=== PATIENT | female | born 1970 | race Two or more races ===

== ENCOUNTER 2017-06-05 12:33 | Inpatient (IN) | payer BC ==
[~2017-06-05] VITALS: Ht 160 cm; Wt 77.6 kg
[2017-06-05] VITALS (9 sets, daily range): BP systolic 110–127; BP diastolic 55–76
[2017-06-05 13:23] LABS: BASO # 0.1 x10^3/uL (0.0-0.2); BASO % 1 % (0-3); EOS % 1 % (0-3); HEMATOCRIT 25.5 % (36.0-47.0); HEMOGLOBIN 7.5 g/dL (12.0-15.5); LYMPH # 2.1 x10^3/uL (1.0-4.8); LYMPH % 31 % (24-48); MEAN CORPUSCULAR HEMOGLOBIN 18 pg (25-35); MEAN CORPUSCULAR HGB CONC 29 g/dL (31-37); MEAN CORPUSCULAR VOLUME 63 fL (79-100); MONO % 8 % (0-9); NEUT % 58 % (31-73); PLATELET COUNT 332 x10^3/uL (140-400); RED BLOOD COUNT 4.07 x10^6/uL (3.50-5.40); RED CELL DISTRIBUTION WIDTH 19.6 % (11.5-14.5); WHITE BLOOD COUNT 6.6 x10^3/uL (4.0-11.0)
[2017-06-05 13:34] LABS: CREATININE 0.8 mg/dL (0.6-1.0); GFR 77.2; POTASSIUM 3.2 mmol/L (3.5-5.1)
[2017-06-05 13:40] LABS: ALBUMIN 3.8 g/dL (3.4-5.0); ALBUMIN/GLOBULIN RATIO 0.9 (1.0-1.7); PROTHROMBIN TIME PATIENT 12.9 SEC (11.7-14.0); TOTAL BILIRUBIN 0.3 mg/dL (0.2-1.0); TOTAL PROTEIN 7.9 g/dL (6.4-8.2)
--- NOTE | 2017-06-05 14:02 | PHYS DOC ---
Past Medical History Past Medical History: Hypotension Past Surgical History: , Other Additional Past Surgical Histo: THYROID DESTROYED W/CAPSULE Alcohol Use: Occasionally Drug Use: None Adult General Chief Complaint Chief Complaint: ABNORMAL LABS HPI HPI Patient is a 46 year old female who was sent from the clinic due to a low hemoglobin of 6.8. Patient has been feeling increasingly tired, experiencing headaches, occasional chest pain and shortness of breath feeling generalized weakness. Patient has a history of thyroidectomy in heavy menstrual periods. Patient denies any easy bruising, hematuria, rectal bleeding. Review of Systems Review of Systems Constitutional: Denies fever or chills [] HENT: Denies nasal congestion or sore throat [] Respiratory: Denies cough. Episodic shortness of breath Cardiovascular: Episodic chest discomfort GI: Denies abdominal pain, nausea, vomiting, bloody stools or diarrhea [] : Denies dysuria or hematuria . Heavy menstrual periods Musculoskeletal: Denies back pain or joint pain [] Integument: Denies rash or skin lesions [] Neurologic: Mild headache, no focal weaknesses Endocrine: Denies polyuria or polydipsia [] Allergies Allergies Allergies Coded Allergies Type Severity Reaction Last Updated Verified No Known Drug Allergies 06/05/17 No Physical Exam Physical Exam Constitutional: Well developed, well nourished, no acute distress, pale HENT: Normocephalic, atraumatic, Eyes: PERRLA, EOMI, conjunctiva pale, no discharge. [] Neck: Normal range of motion, no tenderness, supple, no stridor. [] Cardiovascular:Heart rate regular rhythm, no murmur, normal perfusion Lungs & Thorax: Bilateral breath sounds clear to auscultation, no tachypnea Abdomen: Bowel sounds normal, soft, no tenderness, no masses, no pulsatile masses. [] Skin: Warm, dry, no erythema, no rash. [] Back: No tenderness, no CVA tenderness. [] Extremities: No tenderness, no cyanosis, no clubbing, ROM intact, no edema. [] Neurologic: Alert and oriented X 3, normal motor function no focal deficits noted. [] Psychologic: Affect normal, judgement normal, mood normal. [] Current Patient Data Vital Signs Vital Signs Date Time Temp Pulse Resp B/P (MAP) Pulse Ox O2 Delivery O2 Flow Rate FiO2 06/05/17 12:54 97.8 82 18 168/77 (107) 100 Room Air 97.8 Lab Values Laboratory Tests Test 06/05/17 13:15 White Blood Count 6.6 x10^3/uL (4.0-11.0) Red Blood Count 4.07 x10^6/uL (3.50-5.40) Hemoglobin 7.5 g/dL (12.0-15.5) L Hematocrit 25.5 % (36.0-47.0) L Mean Corpuscular Volume 63 fL (79-100) L Mean Corpuscular Hemoglobin 18 pg (25-35) L Mean Corpuscular Hemoglobin Concent 29 g/dL (31-37) L Red Cell Distribution Width 19.6 % (11.5-14.5) H Platelet Count 332 x10^3/uL (140-400) Neutrophils (%) (Auto) 58 % (31-73) Lymphocytes (%) (Auto) 31 % (24-48) Monocytes (%) (Auto) 8 % (0-9) Eosinophils (%) (Auto) 1 % (0-3) Basophils (%) (Auto) 1 % (0-3) Neutrophils # (Auto) 3.8 x10^3uL (1.8-7.7) Lymphocytes # (Auto) 2.1 x10^3/uL (1.0-4.8) Monocytes # (Auto) 0.5 x10^3/uL (0.0-1.1) Eosinophils # (Auto) 0.1 x10^3/uL (0.0-0.7) Basophils # (Auto) 0.1 x10^3/uL (0.0-0.2) Platelet Estimate Adequate (ADEQUATE) Hypochromasia Marked Poikilocytosis Slight Anisocytosis Slight Microcytosis Marked Ovalocytes Few Prothrombin Time 12.9 SEC (11.7-14.0) Prothrombin Time INR 1.0 (0.8-1.1) Sodium Level 141 mmol/L (136-145) Potassium Level 3.2 mmol/L (3.5-5.1) L Chloride Level 104 mmol/L (98-107) Carbon Dioxide Level 28 mmol/L (21-32) Anion Gap 9 (6-14) Blood Urea Nitrogen 13 mg/dL (7-20) Creatinine 0.8 mg/dL (0.6-1.0) Estimated GFR (Cockcroft-Gault) 77.2 BUN/Creatinine Ratio 16 (6-20) Glucose Level 85 mg/dL (70-99) Calcium Level 9.0 mg/dL (8.5-10.1) Iron Level 53 ug/dL (50-170) Total Iron Binding Capacity 476 ug/dL (250-450) H Iron Saturation 11 % (15-34) L Total Bilirubin 0.3 mg/dL (0.2-1.0) Aspartate Amino Transferase (AST) 21 U/L (15-37) Alanine Aminotransferase (ALT) 22 U/L (14-59) Alkaline Phosphatase 96 U/L (46-116) Total Protein 7.9 g/dL (6.4-8.2) Albumin 3.8 g/dL (3.4-5.0) Albumin/Globulin Ratio 0.9 (1.0-1.7) L Laboratory Tests 06/05/17 13:15 Laboratory Tests 06/05/17 13:15 EKG EKG 79, SR, no stemi, EP interpretation at 1311[] Radiology/Procedures Radiology/Procedures [] Course & Med Decision Making Course & Med Decision Making Pertinent Labs and Imaging studies reviewed. (See chart for details) [] Dragon Disclaimer Dragon Disclaimer This electronic medical record was generated, in whole or in part, using a voice recognition dictation system. Departure Departure Disposition: 09 ADMITTED INPATIENT Admitting Physician: Payal Soria Referrals: LAMONT AGUILAR (PCP) Anand ESTRADA MD Jun 05, 2017 14:02
[2017-06-05] MEDS ORDERED: IV NORMAL SALINE 500ML BAG 500 ML IV SCH (14:30)
[2017-06-05 14:54] LABS: ANISOCYTOSIS SLIGHT; HYPOCHROMIA MARKED; MICROCYTOSIS MARKED; PLT ESTIMATE ADEQUATE (ADEQUATE); POIKILOCYTOSIS SLIGHT
[2017-06-05 14:55] LABS: OVALOCYTES FEW
[2017-06-05] MEDS ORDERED: ONDANSETRON PF 4 MG/2 ML VIAL. IV PRN (15:00)
[2017-06-05] MEDS ORDERED: BUTALB/APAP/CAFEIN 50/325/40MG TABLET. PO PRN (15:45)
[2017-06-05] MEDS ORDERED: traMADol 50 MG TABLET PO PRN (15:45)
[2017-06-05 15:52] LABS: % SAT IRON 11 % (15-34); IRON,SERUM 53 ug/dL (50-170)
[2017-06-05] MEDS ORDERED: MAGNESIUM SULFATE 2GM 50 ML IV ONE (16:00)
[2017-06-05] MEDS ORDERED: POTASSIUM CHLORIDE 20 MEQ TABLET.ER. PO ONE (16:00)
--- NOTE | 2017-06-05 16:21 | PDOC1 ---
History and Physical Date of Admission Date of Admission DATE: 06/05/17 TIME: 16:14 Identification/Chief Complaint Chief Complaint chest pain, dyspnea on exertion Problems: Source Source: Chart review, Patient History of Present Illness History of Present Illness Ms. Min, is a 46 year old female who was sent from the clinic due to a low hemoglobin of 6.8. She has been feeling increasingly tired, experiencing headaches, occasional chest pain and shortness of breath feeling generalized weakness. 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 is s/p tubal ligation, not interested in having other children no other bleeding, no heavy bleeding with child Past Medical History Cardiovascular: No pertinent hx Pulmonary: No pertinent hx GI: No pertinent hx Musculoskeletal: low back pain Rheumatologic: No pertinent hx ENT: No pertinent hx Renal/: No pertinent hx Endocrine: Hypothyroidism Past Surgical History Past Surgical History: Tubal Ligation, Other (radioablation thyroid) Social History Smoke: No ALCOHOL: social Drugs: None Current Medications Current Medications Current Medications Sodium Chloride 500 ml @ 500 mls/hr Q1H IV Last administered on 06/05/17t 14: 49; Start 06/05/17 at 14:30; Stop 06/05/17 at 15:29; Status DC Ondansetron HCl (Zofran) 4 mg PRN Q8HRS PRN IV NAUSEA/VOMITING; Start 06/05/17 at 15:00; Stop 06/06/17 at 14:59 Potassium Chloride (Klor-Con) 20 meq DAILYWBKFT PO ; Start 06/06/17 at 08:00 Potassium Chloride (Klor-Con) 40 meq 1X ONCE PO ; Start 06/05/17 at 16:00; Stop 06/05/17 at 16:01; Status DC Magnesium Sulfate/ Dextrose 50 ml @ 25 mls/hr 1X ONCE IV ; Start 06/05/17 at 16 :00; Stop 06/05/17 at 17:59 Acetaminophen/ Butalbital/ Caffeine (Fioricet) 1 tab PRN Q6HRS PRN PO MIGRAINE HEADACHE; Start 06/05/17 at 15:45 Tramadol HCl (Ultram) 50 mg PRN Q6HRS PRN PO PAIN; Start 06/05/17 at 15:45 Allergies Allergies: Coded Allergies: No Known Drug Allergies (Unverified , 06/05/17) ROS General: No: Chills, Night Sweats, Fatigue, Malaise, Appetite, Other PSYCHOLOGICAL ROS: No: Anxiety, Behavioral Disorder, Concentration difficultie , Decreased libido, Depression, Disorientation, Hallucinations, Hostility, Irritablity, Memory difficulties, Mood Swings, Obsessive thoughts, Physical abuse, Sexual abuse, Sleep disturbances, Suicidal ideation, Other Eyes: No Blurry vision, No Decreased vision, No Double vision, No Dry eyes, No Excessive tearing, No Eye Pain, No Itchy Eyes, No Loss of vision, No Photophobia , No Scotomata, No Uses contacts, No Uses glasses, No Other HEENT: No: Heacaches, Visual Changes, Hearing change, Nasal congestion, Nasal discharge, Oral lesions, Sinus pain, Sore Throat, Epistaxis, Sneezing, Snoring, Tinnitus, Vertigo, Vocal changes, Other Respiratory: No: Cough, Hemoptysis, Orthopnea, Pleuritic Pain, Shortness of breath, SOB with excertion, Sputum Changes, Stridor, Tachypnea, Wheezing, Other Cardiovascular: yes Chest Pain, yes Edema, No Palpitations, No Orthopnea, No Paroxysmal Noc. Dyspnea, No Lt Headedness, No Other Gastrointestinal: No Nausea, No Vomiting, No Abdominal Pain, No Diarrhea, No Constipation, No Melena, No Hematochezia, No Other Genitourinary: No Dysuria, No Frequency, No Incontinence, No Hematuria, No Retention, No Discharge, No Urgency, No Pain, No Flank Pain, No Other, No , No , No , No , No , No , No Musculoskeletal: No Gait Disturbance, No Joint Pain, No Joint Stiffness, No Joint Swelling, No Muscle Pain, No Muscular Weakness, No Pain In:, No Swelling In:, No Other Neurological: No Behavorial Changes, No Bowel/Bladder ControlChng, No Confusion , No Dizziness, No Gait Disturbance, No Headaches, No Impaired Coord/balance, No Memory Loss, No Numbness/Tingling, No Seizures, No Speech Problems, No Tremors, No Visual Changes, No Weakness, No Other Skin: No Dry Skin, No Eczema, No Hair Changes, No Lumps, No Mole Changes, No Mottling, No Nail Changes, No Pruritus, No Rash, No Skin Lesion Changes, No Other, No Acne Physical Exam General: Alert, Oriented X3, Cooperative, No acute distress HEENT: EOMI, Mucous membr. moist/pink Lungs: Normal air movement Heart: S1S2, no gallops, no murmurs Abdomen: Normal bowel sounds, Soft Rectal Exam: not examined Extremities: No clubbing, No edema, Normal pulses Skin: No breakdown, No significant lesion Neuro: Normal speech, Normal tone, Sensation intact, Cranial nerves 3-12 NL Psych/Mental Status: Mood NL Vitals Vitals Vital Signs Date Time Temp Pulse Resp B/P (MAP) Pulse Ox O2 Delivery O2 Flow Rate FiO2 06/05/17 14:50 68 19 116/58 (77) 100 Room Air 06/05/17 12:54 97.8 97.8 Labs Labs Laboratory Tests Test 06/05/17 13:15 White Blood Count 6.6 x10^3/uL (4.0-11.0) Red Blood Count 4.07 x10^6/uL (3.50-5.40) Hemoglobin 7.5 g/dL (12.0-15.5) Hematocrit 25.5 % (36.0-47.0) Mean Corpuscular Volume 63 fL (79-100) Mean Corpuscular Hemoglobin 18 pg (25-35) Mean Corpuscular Hemoglobin Concent 29 g/dL (31-37) Red Cell Distribution Width 19.6 % (11.5-14.5) Platelet Count 332 x10^3/uL (140-400) Neutrophils (%) (Auto) 58 % (31-73) Lymphocytes (%) (Auto) 31 % (24-48) Monocytes (%) (Auto) 8 % (0-9) Eosinophils (%) (Auto) 1 % (0-3) Basophils (%) (Auto) 1 % (0-3) Neutrophils # (Auto) 3.8 x10^3uL (1.8-7.7) Lymphocytes # (Auto) 2.1 x10^3/uL (1.0-4.8) Monocytes # (Auto) 0.5 x10^3/uL (0.0-1.1) Eosinophils # (Auto) 0.1 x10^3/uL (0.0-0.7) Basophils # (Auto) 0.1 x10^3/uL (0.0-0.2) Platelet Estimate Adequate (ADEQUATE) Hypochromasia Marked Poikilocytosis Slight Anisocytosis Slight Microcytosis Marked Ovalocytes Few Prothrombin Time 12.9 SEC (11.7-14.0) Prothromb Time International Ratio 1.0 (0.8-1.1) Sodium Level 141 mmol/L (136-145) Potassium Level 3.2 mmol/L (3.5-5.1) Chloride Level 104 mmol/L (98-107) Carbon Dioxide Level 28 mmol/L (21-32) Anion Gap 9 (6-14) Blood Urea Nitrogen 13 mg/dL (7-20) Creatinine 0.8 mg/dL (0.6-1.0) Estimated GFR (Cockcroft-Gault) 77.2 BUN/Creatinine Ratio 16 (6-20) Glucose Level 85 mg/dL (70-99) Calcium Level 9.0 mg/dL (8.5-10.1) Iron Level 53 ug/dL (50-170) Total Iron Binding Capacity 476 ug/dL (250-450) Iron Saturation 11 % (15-34) Total Bilirubin 0.3 mg/dL (0.2-1.0) Aspartate Amino Transf (AST/SGOT) 21 U/L (15-37) Alanine Aminotransferase (ALT/SGPT) 22 U/L (14-59) Alkaline Phosphatase 96 U/L (46-116) Total Protein 7.9 g/dL (6.4-8.2) Albumin 3.8 g/dL (3.4-5.0) Albumin/Globulin Ratio 0.9 (1.0-1.7) Laboratory Tests Test 06/05/17 13:15 White Blood Count 6.6 x10^3/uL (4.0-11.0) Red Blood Count 4.07 x10^6/uL (3.50-5.40) Hemoglobin 7.5 g/dL (12.0-15.5) Hematocrit 25.5 % (36.0-47.0) Mean Corpuscular Volume 63 fL (79-100) Mean Corpuscular Hemoglobin 18 pg (25-35) Mean Corpuscular Hemoglobin Concent 29 g/dL (31-37) Red Cell Distribution Width 19.6 % (11.5-14.5) Platelet Count 332 x10^3/uL (140-400) Neutrophils (%) (Auto) 58 % (31-73) Lymphocytes (%) (Auto) 31 % (24-48) Monocytes (%) (Auto) 8 % (0-9) Eosinophils (%) (Auto) 1 % (0-3) Basophils (%) (Auto) 1 % (0-3) Neutrophils # (Auto) 3.8 x10^3uL (1.8-7.7) Lymphocytes # (Auto) 2.1 x10^3/uL (1.0-4.8) Monocytes # (Auto) 0.5 x10^3/uL (0.0-1.1) Eosinophils # (Auto) 0.1 x10^3/uL (0.0-0.7) Basophils # (Auto) 0.1 x10^3/uL (0.0-0.2) Platelet Estimate Adequate (ADEQUATE) Hypochromasia Marked Poikilocytosis Slight Anisocytosis Slight Microcytosis Marked Ovalocytes Few Prothrombin Time 12.9 SEC (11.7-14.0) Prothromb Time International Ratio 1.0 (0.8-1.1) Sodium Level 141 mmol/L (136-145) Potassium Level 3.2 mmol/L (3.5-5.1) Chloride Level 104 mmol/L (98-107) Carbon Dioxide Level 28 mmol/L (21-32) Anion Gap 9 (6-14) Blood Urea Nitrogen 13 mg/dL (7-20) Creatinine 0.8 mg/dL (0.6-1.0) Estimated GFR (Cockcroft-Gault) 77.2 BUN/Creatinine Ratio 16 (6-20) Glucose Level 85 mg/dL (70-99) Calcium Level 9.0 mg/dL (8.5-10.1) Iron Level 53 ug/dL (50-170) Total Iron Binding Capacity 476 ug/dL (250-450) Iron Saturation 11 % (15-34) Total Bilirubin 0.3 mg/dL (0.2-1.0) Aspartate Amino Transf (AST/SGOT) 21 U/L (15-37) Alanine Aminotransferase (ALT/SGPT) 22 U/L (14-59) Alkaline Phosphatase 96 U/L (46-116) Total Protein 7.9 g/dL (6.4-8.2) Albumin 3.8 g/dL (3.4-5.0) Albumin/Globulin Ratio 0.9 (1.0-1.7) VTE Prophylaxis Ordered VTE Prophylaxis Devices: Yes VTE Pharmacological Prophylaxi: Contraindicated Assessment/Plan Assessment/Plan anemia symptomatic anemia, chest pain and exertional dyspnea, transfuse 1 u consult CV for symptoms with Hgb at 7 consult Sales Floor Team Member for menorrhagia, heavy menses. check iron levels hypothyroid, level checked at PCP office today WENDY PEREZ MD Jun 05, 2017 16:21
--- NOTE | 2017-06-05 16:39 | PDOC2 ---
RODRÍGUEZ CERON CHARGE AIDE 06/05/17 1639: CARDIAC CONSULT DATE OF CONSULT Date of Consult DATE: 06/05/17 TIME: 16:34 REASON FOR CONSULT Reason for Consult: angina REFERRING PHYSICIAN Referring Physician: Yang SOURCE Source: Chart review, Patient HISTORY OF PRESENT ILLNESS HISTORY OF PRESENT ILLNESS This is a 46 yo female admitted for intermittent PAULINO and midchest pain. Reports intermittent use of ibuprofen but no obvious sign of bleeding and has been taking iron supplements. Reports that her midchest pain is intermittent and sharp and mainly when she takes a deep breath. No complains of wheezing, palpitations, frequent dizziness. No prior cad,vte, long distance travels, falls or any recent injury. presently she is asymptomatic and has been noted with anemia now receiving blood transfusion. PAST MEDICAL HISTORY Cardiovascular: Hyperlipidemia Pulmonary: No pertinent hx CENTRAL NERVOUS SYSTEM: Other GI: No pertinent hx Heme/Onc: Anemia NOS Hepatobiliary: No pertinent hx Psych: No pertinent hx Musculoskeletal: Other Rheumatologic: No pertinent hx Infectious disease: No pertinent hx ENT: No pertinent hx Renal/: No pertinent hx Endocrine: Diabetes, Hypothyroidism Dermatology: No pertinent hx PAST SURGICAL HISTORY Past Surgical History: , Tubal Ligation, Other (thyroid ablation) FAMILY HISTORY Family History: Coronary Artery Disease SOCIAL HISTORY Smoke: No ALCOHOL: none Drugs: None Lives: with Family CURRENT MEDICATIONS CURRENT MEDICATIONS Current Medications Medications (Trade) Dose Ordered Sig/Patria Route PRN Reason Start Time Stop Time Status Last Admin Dose Admin Sodium Chloride 500 ml @ 500 mls/hr Q1H IV 06/05/17 14:30 06/05/17 15:29 DC 06/05/17 14:49 ALLERGIES ALLERGIES: Coded Allergies: No Known Drug Allergies (Unverified , 06/05/17) ROS Review of System 14 point ROS evaluated with pertinent positives noted per hpi VITALS VITALS Vital Signs Date Time Temp Pulse Resp B/P (MAP) Pulse Ox O2 Delivery O2 Flow Rate FiO2 06/05/17 16:27 98.1 64 16 113/68 98.1 06/05/17 14:50 100 Room Air LABS Lab: Laboratory Tests Test 06/05/17 13:15 White Blood Count 6.6 x10^3/uL (4.0-11.0) Red Blood Count 4.07 x10^6/uL (3.50-5.40) Hemoglobin 7.5 g/dL (12.0-15.5) Hematocrit 25.5 % (36.0-47.0) Mean Corpuscular Volume 63 fL (79-100) Mean Corpuscular Hemoglobin 18 pg (25-35) Mean Corpuscular Hemoglobin Concent 29 g/dL (31-37) Red Cell Distribution Width 19.6 % (11.5-14.5) Platelet Count 332 x10^3/uL (140-400) Neutrophils (%) (Auto) 58 % (31-73) Lymphocytes (%) (Auto) 31 % (24-48) Monocytes (%) (Auto) 8 % (0-9) Eosinophils (%) (Auto) 1 % (0-3) Basophils (%) (Auto) 1 % (0-3) Neutrophils # (Auto) 3.8 x10^3uL (1.8-7.7) Lymphocytes # (Auto) 2.1 x10^3/uL (1.0-4.8) Monocytes # (Auto) 0.5 x10^3/uL (0.0-1.1) Eosinophils # (Auto) 0.1 x10^3/uL (0.0-0.7) Basophils # (Auto) 0.1 x10^3/uL (0.0-0.2) Platelet Estimate Adequate (ADEQUATE) Hypochromasia Marked Poikilocytosis Slight Anisocytosis Slight Microcytosis Marked Ovalocytes Few Prothrombin Time 12.9 SEC (11.7-14.0) Prothromb Time International Ratio 1.0 (0.8-1.1) Sodium Level 141 mmol/L (136-145) Potassium Level 3.2 mmol/L (3.5-5.1) Chloride Level 104 mmol/L (98-107) Carbon Dioxide Level 28 mmol/L (21-32) Anion Gap 9 (6-14) Blood Urea Nitrogen 13 mg/dL (7-20) Creatinine 0.8 mg/dL (0.6-1.0) Estimated GFR (Cockcroft-Gault) 77.2 BUN/Creatinine Ratio 16 (6-20) Glucose Level 85 mg/dL (70-99) Calcium Level 9.0 mg/dL (8.5-10.1) Iron Level 53 ug/dL (50-170) Total Iron Binding Capacity 476 ug/dL (250-450) Iron Saturation 11 % (15-34) Total Bilirubin 0.3 mg/dL (0.2-1.0) Aspartate Amino Transf (AST/SGOT) 21 U/L (15-37) Alanine Aminotransferase (ALT/SGPT) 22 U/L (14-59) Alkaline Phosphatase 96 U/L (46-116) Total Protein 7.9 g/dL (6.4-8.2) Albumin 3.8 g/dL (3.4-5.0) Albumin/Globulin Ratio 0.9 (1.0-1.7) ASSESSMENT/PLAN ASSESSMENT/PLAN 1. Atypical Chest pain: likely induced by anemia. doubt ACS 2. Microcytic hypochromic anemia 3. Hypokalemia 4. Hypothyroidism 5. DLP/pre dm Recommendations 1. Trend troponin, tsh. 2. Anemia w/u and blood transfusion per pcp 3. If continued PAULINO and CP post transfusion then will consider for further w/u and this could be done as an outpt Problems: ALEX BARBOSA MD 06/05/17 2253: CARDIAC CONSULT ALLERGIES ALLERGIES: Coded Allergies: No Known Drug Allergies (Unverified , 06/05/17) ASSESSMENT/PLAN ASSESSMENT/PLAN Pt. seen and examined on 06/06/2017. Late entry. AGree with above [employer] note. 46 y.o woman with non-cardiac chest pain. Anemia. CP resolved after transfusion. No concerning cardiac exam findings. Supportive care. Echo wnl Problems: RODRÍGUEZ CERON APRN Jun 05, 2017 16:39 ALEX BARBOSA MD Jun 05, 2017 22:53
[2017-06-05] MEDS: FERROUS SULFATE 325 MG TABLET. PO SCH (17:33)
[2017-06-05] MEDS ORDERED: LEVO125T PO (18:03)
[2017-06-06 03:00] VITALS: BP 99/61
[2017-06-06 05:40] LABS: BASO # 0.1 x10^3/uL (0.0-0.2); BASO % 1 % (0-3); EOS % 1 % (0-3); HEMATOCRIT 28.9 % (36.0-47.0); HEMOGLOBIN 8.9 g/dL (12.0-15.5); LYMPH % 31 % (24-48); MEAN CORPUSCULAR HEMOGLOBIN 20 pg (25-35); MEAN CORPUSCULAR HGB CONC 31 g/dL (31-37); MEAN CORPUSCULAR VOLUME 66 fL (79-100); MONO % 8 % (0-9); NEUT % 59 % (31-73); PLATELET COUNT 323 x10^3/uL (140-400); RED CELL DISTRIBUTION WIDTH 22.2 % (11.5-14.5); WHITE BLOOD COUNT 6.4 x10^3/uL (4.0-11.0)
--- NOTE | 2017-06-06 06:06 | EKG ---
[facility] [address] [place] [address] Test Date: 2017-06-05 Test Time: 13:10:56 Pat Name: LIZBETH RAMSEY Department: Room: [facility] Gender: F Group Therapy Counselor: : 1970 Requested By: WENDY PEREZ Order Number: [id number] Reading MD: [place] Measurements Intervals [place] Rate: 79 P: 49 ND: 148 QRS: 3 QRSD: 78 T: 14 QT: 398 QTc: 457 Interpretive Statements SINUS RHYTHM NORMAL ECG Electronically Signed On 06-08-2017 14:58:21 CDT by [place]
[2017-06-06 06:15] LABS: CALCIUM 8.8 mg/dL (8.5-10.1); CREATININE 0.7 mg/dL (0.6-1.0); GFR 90.1
[2017-06-06 06:23] LABS: CHOLESTEROL/HDL RATIO 3.8
[2017-06-06 07:28] VITALS: BP 116/61
[2017-06-06] MEDS: FERROUS SULFATE 325 MG TABLET. PO SCH (07:37)
[2017-06-06] MEDS ORDERED: POTASSIUM CHLORIDE 20 MEQ TABLET.ER. PO SCH (08:00)
--- NOTE | 2017-06-06 09:12 | CARD ---
APPROVED REPORT EXAM: Two-dimensional and M-mode echocardiogram with Doppler and color Doppler. Other Information Quality : Average Rhythm : NSR INDICATION Dyspnea 2D DIMENSIONS RVDd3.3 (2.9-3.5cm)Left Atrium(2D)3.5 (1.6-4.0cm) IVSd0.9 (0.7-1.1cm)Aortic Root(2D)2.5 (2.0-3.7cm) LVDd5.1 (3.9-5.9cm)LVOT Diameter2.0 (1.8-2.4cm) PWd0.9 (0.7-1.1cm)LVDs3.3 (2.5-4.0cm) FS (%) 35.4 %SV78.7 ml LVEF(%)64.5 (>50%) Aortic Valve AoV Peak Ricardo.111.2cm/sAoV VTI25.7cm AO Peak GR.4.9mmHgLVOT Peak Ricardo.73.3cm/s LVOT VTI 19.45cmAO Mean GR.3mmHg MARCOS (VMAX)2.23zh8FDT (VTI)2.30cm2 Mitral Valve MV E Eeemqoim26.9cm/sMV DECEL XZLL673da MV A Ltretpoa44.9cm/sMV JVF61td E/A Ratio1.3MV A Fstqnlet702et MVA (PHT)3.77cm2 TDI E/Lateral E'7.7E/Medial E'9.4 Pulmonary Valve PV Peak Afkmcgke868.2cm/sPV Peak Grad.6mmHg RVOT VTI26.3cm Tricuspid Valve TR P. Kbobjfuf234ow/sRAP SECMXZWQ3neVt TR Peak Gr.16wtRnTNTS75bnNu Pulmonary Vein S1 Qarkxcjg03.4cm/sD2 Emylruyr38.8cm/s LEFT VENTRICLE The left ventricle is normal size. There is normal left ventricular wall thickness. Left ventricle sy stolic function is normal. The Ejection Fraction is 60-65%. There is normal LV segmental wall motion. The left ventricular diastolic function and filling is normal for age. There is no ventricular septa l defect visualized. RIGHT VENTRICLE The right ventricle is normal size. The right ventricular systolic function is normal. ATRIA The left atrium size is normal. The right atrium size is normal. The interatrial septum is intact wit h no evidence for an atrial septal defect or patent foramen ovale as noted on 2-D or Doppler imaging. AORTIC VALVE The aortic valve is normal in structure and function. The aortic valve is trileaflet. Doppler and Col or Flow revealed no significant aortic regurgitation. There is no significant aortic valvular stenosi s. MITRAL VALVE The mitral valve is normal in structure. There is no mitral valve stenosis. Doppler and Color Flow re vealed mild mitral regurgitation. TRICUSPID VALVE The tricuspid valve is normal in structure. Doppler and Color Flow revealed mild tricuspid regurgitat ion. The PA pressure was estimated at 29 mmHg. There is no tricuspid valve stenosis. PULMONIC VALVE The pulmonic valve is not well visualized. Doppler and Color Flow revealed no pulmonic valvular regur gitation. There is no pulmonic valvular stenosis. GREAT VESSELS The aortic root is normal in size. The ascending aorta is normal in size. Normal pulmonary venous george w (Doppler). The IVC is normal in size and collapses >50% with inspiration. PERICARDIAL EFFUSION There is no evidence of significant pericardial effusion. Critical Notification Critical Value: No <Conclusion> Left ventricle systolic function is normal. The Ejection Fraction is 60-65%. There is normal LV segmental wall motion.
[2017-06-06 10:30] VITALS: BP 110/60
--- NOTE | 2017-06-06 10:30 | PDOC ---
SUBJECTIVE Subjective feels better after transfusion, Hb up to 8.9 OBJECTIVE Vital Signs Vital Signs Date Time Temp Pulse Resp B/P (MAP) Pulse Ox O2 Delivery O2 Flow Rate FiO2 06/06/17 07:51 Room Air 06/06/17 07:28 97.9 71 20 116/61 (79) 98 Room Air 97.9 06/06/17 03:00 97.7 62 20 99/61 (74) 98 Room Air 97.7 06/05/17 23:45 97.7 63 20 115/55 (75) 98 Room Air 97.7 06/05/17 20:00 Room Air 06/05/17 18:45 98.1 68 16 127/76 98.1 06/05/17 18:34 98.1 75 18 115/58 (77) 99 Room Air 98.1 06/05/17 18:32 98.1 75 18 115/58 98.1 06/05/17 17:43 98.5 67 18 110/64 (79) 99 Room Air 98.5 06/05/17 17:40 98.5 67 18 110/64 98.5 06/05/17 16:56 98.4 66 18 124/63 (83) 100 Room Air 98.4 06/05/17 16:40 97.9 63 14 116/61 97.9 06/05/17 16:29 Room Air 06/05/17 16:27 98.1 64 16 113/68 98.1 06/05/17 14:50 68 19 116/58 (77) 100 Room Air 06/05/17 14:31 74 127/67 (87) 97 Room Air 06/05/17 12:54 97.8 82 18 168/77 (107) 100 Room Air 97.8 I & O Intake and Output 06/06/17 07:00 Intake Total 860 ml Balance 860 ml Intake Oral 740 ml IV Total 50 ml Blood Product IV Normal Saline Flush 70 ml # Voids 4 PHYSICAL EXAM Physical Exam lungs clear heart RRR abd soft ext no edema ASSESSMENT/PLAN Assessment/Plan 1-symptomatic anemia, chest pain and exertional dyspnea, transfuse 1 u , echo ok , 2- menorrhagia, consult Welt Maker for heavy menses. out pt 3.hypothyroid, level checked at PCP office today home today , f/u out pt Problems: COMMENT Lab Laboratory Tests Test 06/05/17 13:15 06/05/17 20:30 06/06/17 05:00 White Blood Count 6.6 x10^3/uL (4.0-11.0) 6.4 x10^3/uL (4.0-11.0) Red Blood Count 4.07 x10^6/uL (3.50-5.40) 4.40 x10^6/uL (3.50-5.40) Hemoglobin 7.5 g/dL (12.0-15.5) 8.9 g/dL (12.0-15.5) Hematocrit 25.5 % (36.0-47.0) 28.9 % (36.0-47.0) Mean Corpuscular Volume 63 fL (79-100) 66 fL (79-100) Mean Corpuscular Hemoglobin 18 pg (25-35) 20 pg (25-35) Mean Corpuscular Hemoglobin Concent 29 g/dL (31-37) 31 g/dL (31-37) Red Cell Distribution Width 19.6 % (11.5-14.5) 22.2 % (11.5-14.5) Platelet Count 332 x10^3/uL (140-400) 323 x10^3/uL (140-400) Neutrophils (%) (Auto) 58 % (31-73) 59 % (31-73) Lymphocytes (%) (Auto) 31 % (24-48) 31 % (24-48) Monocytes (%) (Auto) 8 % (0-9) 8 % (0-9) Eosinophils (%) (Auto) 1 % (0-3) 1 % (0-3) Basophils (%) (Auto) 1 % (0-3) 1 % (0-3) Neutrophils # (Auto) 3.8 x10^3uL (1.8-7.7) 3.8 x10^3uL (1.8-7.7) Lymphocytes # (Auto) 2.1 x10^3/uL (1.0-4.8) 2.0 x10^3/uL (1.0-4.8) Monocytes # (Auto) 0.5 x10^3/uL (0.0-1.1) 0.5 x10^3/uL (0.0-1.1) Eosinophils # (Auto) 0.1 x10^3/uL (0.0-0.7) 0.0 x10^3/uL (0.0-0.7) Basophils # (Auto) 0.1 x10^3/uL (0.0-0.2) 0.1 x10^3/uL (0.0-0.2) Platelet Estimate Adequate (ADEQUATE) Hypochromasia Marked Poikilocytosis Slight Anisocytosis Slight Microcytosis Marked Ovalocytes Few Prothrombin Time 12.9 SEC (11.7-14.0) Prothromb Time International Ratio 1.0 (0.8-1.1) Sodium Level 141 mmol/L (136-145) 142 mmol/L (136-145) Potassium Level 3.2 mmol/L (3.5-5.1) 4.0 mmol/L (3.5-5.1) Chloride Level 104 mmol/L (98-107) 106 mmol/L (98-107) Carbon Dioxide Level 28 mmol/L (21-32) 26 mmol/L (21-32) Anion Gap 9 (6-14) 10 (6-14) Blood Urea Nitrogen 13 mg/dL (7-20) 14 mg/dL (7-20) Creatinine 0.8 mg/dL (0.6-1.0) 0.7 mg/dL (0.6-1.0) Estimated GFR (Cockcroft-Gault) 77.2 90.1 BUN/Creatinine Ratio 16 (6-20) Glucose Level 85 mg/dL (70-99) 50 mg/dL (70-99) Calcium Level 9.0 mg/dL (8.5-10.1) 8.8 mg/dL (8.5-10.1) Iron Level 53 ug/dL (50-170) Total Iron Binding Capacity 476 ug/dL (250-450) Iron Saturation 11 % (15-34) Total Bilirubin 0.3 mg/dL (0.2-1.0) Aspartate Amino Transf (AST/SGOT) 21 U/L (15-37) Alanine Aminotransferase (ALT/SGPT) 22 U/L (14-59) Alkaline Phosphatase 96 U/L (46-116) Total Protein 7.9 g/dL (6.4-8.2) Albumin 3.8 g/dL (3.4-5.0) Albumin/Globulin Ratio 0.9 (1.0-1.7) Troponin I Quantitative < 0.017 ng/mL (0.000-0.055) < 0.017 ng/mL (0.000-0.055) Thyroid Stimulating Hormone (TSH) 1.380 uIU/mL (0.358-3.74) Triglycerides Level 96 mg/dL (0-150) Cholesterol Level 194 mg/dL (0-200) LDL Cholesterol, Calculated 124 mg/dL (0-100) VLDL Cholesterol, Calculated 19 mg/dL (0-40) Non-HDL Cholesterol Calculated 143 mg/dL (0-129) HDL Cholesterol 51 mg/dL (40-60) Cholesterol/HDL Ratio 3.8 FRACISCO MARMOLEJO MD Jun 06, 2017 10:30
--- NOTE | 2017-06-06 12:18 | ACF ---
Admit Criteria Forms Admit Criteria Forms Admit Criteria Forms ANEMIA, IRON DEFICIENCY OR UNSPECIFIED Clinical Indications for Inpatient Care (Place 'X' for any and all applicable criteria): Admission is indicated for ANY ONE of the following(1)(2)(3)(4)(5)(6)(7): [X] I. Inpatient admission required rather than observation care (Also use Anemia, Iron Deficiency or Unspecified: Observation Care guideline as appropriate) because of ANY ONE of the following: [] a) Hemodynamic instability that is severe or persistent [] b) Active bleeding that cannot be rapidly controlled [X] c) CVS symptoms (i.e., dyspnea, chest pain, heart failure) that are severe or persistent [] d) Neurologic symptoms (i.e., cognitive impairment, recurrent syncope or near syncope) that are severe or persistent [] e) Cardiac arrhythmias of immediate concern [] f) Acute peripheral ischemia (e.g., pulseless, cool, mottled, or cyanotic extremity) [] g) High-risk low platelet count [] h) Acute renal failure [] i) Ongoing transfusion for blood loss (greater than 2 units) [] j) IV fluid to replace significant ongoing (eg, >24 hours) losses (> 3 L/m2 per day) [] k) Pulmonary artery catheter monitoring [] l) Supplemental oxygen or respiratory treatments for over 24 hours that are performable only in acute inpatient setting [] m) Immediate inpatient surgery [] n) Other condition, treatment or monitoring requiring inpatient admission [] II Active massive hemorrhage [] III. Active hemolysis with rapidly progressive anemia [A](6) Extended stay beyond goal length of stay may be needed for (17)(18) []a) Diagnosed cause of anemia requiring longer hospitalization (eg, active GI bleeding, immune hemolysis requiring electrophoresis, complications of malignancy requiring acute care []b) Continued emergent anemia indicators (23) []c) Transfusion reactions []d) Associated leukopenia or thrombocytopenia needing inpatient care []e) Active comorbidities (eg, renal failure, heart failure) The original [employer] content created by [employer] has been revised. The portions of the content which have been revised are identified through the use of italic text or in bold. [employer] has neither reviewed nor approved the modified material. All other unmodified content is copyright [employer]. Please see references footnoted in the original [facility] edition 2016 M[place]PER Jun 06, 2017 12:18
[2017-06-06] MEDS ORDERED: FERR325T72 PO (12:40)
--- NOTE | 2017-06-06 12:49 | PDOC3 ---
Discharge Summary* Date of Admission: Jun 05, 2017 Date of Discharge: Jun 06, 2017 Final Diagnosis 1-symptomatic anemia, 2- chest pain and exertional dyspnea, transfuse 1 u , echo ok , 3- menorrhagia, consult Hairspring I Inspector for heavy menses. out pt 4.hypothyroid, level checked at PCP office today CONSULTS cardiology Procedures echo Brief Hospital Course Ms. Min is a 46 old [sex] who presented with [ ] Disposition/Orders: D/C to Home CONDITION AT DISCHARGE: Improved Diet: Cardiac Scheduled Levothyroxine Sodium (Synthroid), 1 TAB PO DAILY, (Reported) FOLLOW UP APPOINTMENT: need pelvic sono and SENIOR PRODUCT MANAGER out pt consult, F/U Dr. Marmolejo 1 week Time Spent Total time spent with patient [] minutes for coordination of care, counseling, and education. FRACISCO MARMOLEJO MD Jun 06, 2017 12:49
== END 2017-06-06 14:25 | disposition home or self-care (01) | DRG 812 ==
LOC: ER 12:33 → 5 NORTH 14:19 → OBSVTOIN 06-06 11:32
PROVIDERS: ADMIT Internal Medicine; ATTEND Internal Medicine
PROC: 30233N1 Transfusion of Nonautologous Red Blood Cells into Peripheral Vein, Percutaneous Approach (ICD-10-PCS; principal; 2017-06-06)
DX: D50.9 Iron deficiency anemia, unspecified (principal); E11.9 Type 2 diabetes mellitus without complications; E78.5 Hyperlipidemia, unspecified; E87.6 Hypokalemia; E89.0 Postprocedural hypothyroidism; N92.0 Excessive and frequent menstruation with regular cycle; Z82.49 Family history of ischemic heart disease and other diseases of the circulatory system; Z98.51 Tubal ligation status
CPT/HCPCS: 36415; 80048; 80053; 80061; 83540; 83550; 84443; 84484; 85007; 85027; 85610; 86850; 86900; 86901; 86920; 93005; 93306; G0378; G0379; J7040; J7060; P9016; 99285-25

== ENCOUNTER → 2017-07-03 | Outpatient (CLI) | payer BC ==
[2017-06-06 10:30] VITALS: BP 110/60
[~2017-07-03] MED LIST: FERR325T72 PO; LEVO125T PO
--- NOTE | 2017-07-03 09:56 | KCIC ---
Bilateral digital screening mammograms: Reason for examination: Routine baseline screening. The skin and nipples show no abnormalities. No abnormal axillary lymph nodes are seen. The breast parenchyma is extremely dense. (Breast density: Category D.) There is suggestion of a subtle area of nodularity at approximately the 11:00 B position of the right breast. There is also suggestion of some subtle architectural distortion at the 11:30 B position centrally in the right breast. Further evaluation with coned compression views in CC and lateral projections and right breast ultrasound is recommended. There are no other dominant masses, suspicious calcifications or architectural distortion. Impression: Possible nodular density at the 11:00 B position of the right breast and possible architectural distortion at the 11:30 B position of the right breast. Recommend further evaluation with coned compression views in CC and lateral projections and right breast ultrasound. Your patient's mammogram demonstrates that she has dense breast tissue (breast density category C or D), which could hide abnormalities, and if she has other risk factors for breast cancer that have been identified, she might benefit from supplemental screening tests that may be suggested by you as her ordering physician. Dense breast tissue, in and of itself, is a relatively common condition. Therefore, this information is not provided to cause undue concern, but rather to raise your awareness and to promote discussion with your patient regarding the presence of other risk factors, in addition to dense breast tissue. Your patient's mammography results will be sent to her. BI-RAD Category 0: Incomplete. Additional imaging is recommended. "Our facility is accredited by the [employer] Mammography Program." This patient's information has been entered into a reminder system for the patient to be notified with the results of her examination and a target date for the next mammogram. Electronically signed by: Cristina Pittman MD (07/03/2017 9:53 AM) [place] [id number]
== END | disposition home or self-care (01) ==
LOC: KCIC MAMMO 08:17
PROVIDERS: ATTEND Physician Assistant Surgical
DX: Z12.31 Encounter for screening mammogram for malignant neoplasm of breast (principal)
CPT/HCPCS: G0202; 77067

== ENCOUNTER → 2017-07-10 | Outpatient (CLI) | payer BC ==
--- NOTE | 2017-07-10 09:43 | RAD ---
DATE: 07/10/2017 EXAM: DIGITAL DIAGNOSTIC RT, BREAST RIGHT HISTORY: Area of nodularity seen on recent screening mammogram. COMPARISON: 07/03/2017 This study was interpreted with the benefit of Computerized Aided Detection (CAD). The breast parenchyma is heterogeneously dense, which could reduce sensitivity of mammography. Breast parenchyma level C. FINDINGS: Spot compression CC and true lateral digital mammograms of the right breast were obtained. Comparison study is dated 07/03/2017. The area of nodularity seen on the patient's previous mammogram compresses out on today's spot compression view. No abnormality is seen on the true lateral mammogram. A real-time ultrasound examination of the right breast at the 11-11 30 o'clock position was performed. Dense breast parenchyma seen in this area. No solid or cystic mass is seen by ultrasound. IMPRESSION: No persistent mass is seen on mammography or by right breast ultrasound. I would recharacterize the patient's mammograms as a BI-RADS Category 1, negative with a recommendation for routine yearly screening mammography for follow-up. BI-RADS CATEGORY: 1 NEGATIVE RECOMMENDED FOLLOW-UP: 12M 12 MONTH FOLLOW-UP PQRS compliance statement: Patient information was entered into a reminder system with a target due date 07/03/2018 for the next mammogram. Mammography is a sensitive method for finding small breast cancers, but it does not detect them all and is not a substitute for careful clinical examination. A negative mammogram does not negate a clinically suspicious finding and should not result in delay in biopsying a clinically suspicious abnormality. "Our facility is accredited by the [employer] Mammography Program."
== END | disposition home or self-care (01) ==
LOC: KCIC MAMMO 07:46
PROVIDERS: ATTEND Physician Assistant Surgical
DX: R92.8 Other abnormal and inconclusive findings on diagnostic imaging of breast (principal)
CPT/HCPCS: 76641; G0206; 77065

== ENCOUNTER → 2018-07-07 | Outpatient (CLI) | payer BC ==
--- NOTE | 2018-07-07 13:58 | KCIC ---
Pelvic ultrasound dated 07/07/2018. No comparison available. Clinical data indication: Menorrhagia. FINDINGS: Transvaginal pelvic ultrasound was performed. Uterus is retroflexed and measures 13.6 x 6.2 x 6.4 cm. There is a nodular focus in the myometrium posteriorly that measures 2.3 cm in size, consistent with fibroid. Endometrial complex is somewhat thickened measuring 11 mm. There are nabothian cysts at the endocervix. Right ovary measures 3.0 x 1.4 x 2.8 cm. Left ovary measures 6.1 x 4.7 x 5.2 cm. Septated complex cyst at the left ovary measures 4.3 cm maximum dimension. Normal color Doppler flow to both ovaries. Small amount of free pelvic fluid. IMPRESSION: 1. Complex septated cyst at the left ovary measuring up to 4.3 cm in size. Follow-up imaging to ensure stability. 2. Fibroid uterus. 3. Small amount of free pelvic fluid, nonspecific. 4. Mildly thickened endometrial complex, nonspecific but likely related to menstrual bleeding. Recommend clinical correlation. Electronically signed by: Drake Vila MD (07/07/2018 1:55 PM) [id number]
--- NOTE | 2018-07-07 16:37 | KCIC ---
Bilateral digital screening mammograms: Reason for examination: Routine screening. Comparison is made to previous study dated 07/03/2017. Interpretation was made with the benefit of CAD. The skin and nipples show no abnormalities. No abnormal axillary lymph nodes are seen. The breast parenchyma is extremely dense. (Breast density: Category D.) There are no dominant masses, suspicious calcifications or architectural distortion. Impression: No evidence of malignancy. Recommend routine screening. Your patient's mammogram demonstrates that she has dense breast tissue (breast density category C or D), which could hide abnormalities, and if she has other risk factors for breast cancer that have been identified, she might benefit from supplemental screening tests that may be suggested by you as her ordering physician. Dense breast tissue, in and of itself, is a relatively common condition. Therefore, this information is not provided to cause undue concern, but rather to raise your awareness and to promote discussion with your patient regarding the presence of other risk factors, in addition to dense breast tissue. Your patient's mammography results will be sent to her. BI-RAD Category 1: Negative. "Our facility is accredited by the [employer] Mammography Program." This patient's information has been entered into a reminder system for the patient to be notified with the results of her examination and a target date for the next mammogram. Electronically signed by: Cristina Pittman MD (07/07/2018 4:34 PM) [id number]
== END | disposition home or self-care (01) ==
LOC: KCIC US 12:30
PROVIDERS: ATTEND Physician Assistant Surgical
DX: Z12.31 Encounter for screening mammogram for malignant neoplasm of breast (principal); N83.292 Other ovarian cyst, left side; D25.9 Leiomyoma of uterus, unspecified; N88.8 Other specified noninflammatory disorders of cervix uteri; E11.9 Type 2 diabetes mellitus without complications; E78.5 Hyperlipidemia, unspecified; E87.6 Hypokalemia; Z86.2 Personal history of diseases of the blood and blood-forming organs and certain disorders involving the immune mechanism; Z82.49 Family history of ischemic heart disease and other diseases of the circulatory system
CPT/HCPCS: 76830; 76856; 77067

== ENCOUNTER 2018-12-03 08:16 | Observation (INO) | payer BC, OTHER ==
[~2018-12-03] VITALS: Ht 157.5 cm; Wt 84.4 kg
[~2018-12-03 08:16] MED LIST changes: +HYDROmorphone 2 MG/ML VIAL IV PRN; +IV RINGERS,LACTATED 1000ML 1,000 ML IV SCH; +LIDOCAINE 1% PF 2 ML VIAL. ID PRN; +MORPHINE SULFATE 4 MG/ML VIAL. IV PRN; +ONDANSETRON PF 4 MG/2 ML VIAL. IV PRN; +PROCHLORPERAZINE 10 MG/2 ML VIAL. IV PRN; +fentaNYL PF VIAL 100 MCG/2 ML VIAL IV PRN
[2018-12-03 08:47] LABS: U PREG PATIENT NEGATIVE (NEG)
[2018-12-03 09:05] LABS: BASO % 1 % (0-3); EOS # 0.1 x10^3/uL (0.0-0.7); EOS % 2 % (0-3); HEMATOCRIT 38.6 % (36.0-47.0); HEMOGLOBIN 12.7 g/dL (12.0-15.5); LYMPH # 1.5 x10^3/uL (1.0-4.8); LYMPH % 25 % (24-48); MEAN CORPUSCULAR HEMOGLOBIN 28 pg (25-35); MEAN CORPUSCULAR HGB CONC 33 g/dL (31-37); MEAN CORPUSCULAR VOLUME 86 fL (79-100); MONO # 0.5 x10^3/uL (0.0-1.1); MONO % 9 % (0-9); NEUT # 3.8 x10^3uL (1.8-7.7); NEUT % 64 % (31-73); PLATELET COUNT 246 x10^3/uL (140-400); RED CELL DISTRIBUTION WIDTH 14.6 % (11.5-14.5)
[2018-12-03] MEDS ORDERED: ONDANSETRON PF 4 MG/2 ML VIAL. ONE (09:31)
[2018-12-03] MEDS ORDERED: MIDAZOLAM HCL/PF 2 MG/2 ML VIAL. ONE (09:31)
[2018-12-03] MEDS ORDERED: DEXAMETHASONE SOD PHOS 20 MG/5 ML VIAL. ONE (09:31)
[2018-12-03] MEDS ORDERED: fentaNYL PF VIAL 100 MCG/2 ML VIAL ONE ×2 (09:31→11:07)
[2018-12-03] MEDS ORDERED: ROCURONIUM 50 MG/5 ML VIAL. ONE (09:31)
[2018-12-03] MEDS ORDERED: KETOROLAC 30 MG/ML INJ FOR OR. INJ ONE (09:31)
[2018-12-03] MEDS ORDERED: FAMOTIDINE 20 MG/2 ML VIAL ONE (09:31)
[2018-12-03] MEDS ORDERED: PROPOFOL 20 ML IV ONE (09:31)
[2018-12-03] MEDS ORDERED: LIDOCAINE 2% PF Vial for OR 5 ML VIAL. ONE (09:31)
[2018-12-03] MEDS ORDERED: BUPIVAC MPF-EPI 0.5%-1:200000 30 ML VIAL. ONE (09:49)
[2018-12-03] MEDS ORDERED: SURGICEL HEMOSTAT 4X8 EACH. ONE (09:49)
[2018-12-03] MEDS ORDERED: ESTROGENS, CONJ VAGINAL CREAM 30GM TUBE. ONE (09:49)
[2018-12-03] MEDS ORDERED: LIDOCAINE 1%/EPI 1:100,000 20 ML VIAL. ONE (09:50)
[2018-12-03] MEDS ORDERED: INDIGOTINDISULFONATE SODIUM 40 MG/5 ML AMPUL. IV ONE (10:00)
[2018-12-03] MEDS ORDERED: PHENYLEPHRINE in 0.9% NACL PF 1 MG/10 ML SYRINGE. IV ONE (10:27)
[2018-12-03] MEDS ORDERED: SEVOFLURANE 61 TO 120 MINUTES. IH ONE (11:43)
[2018-12-03] MEDS ORDERED: SEVOFLURANE > 120 MINUTES. IH ONE (11:53)
[2018-12-03] MEDS ORDERED: GLYCOPYRROLATE 1 MG/5 ML VIAL. ONE (12:07)
[2018-12-03] MEDS ORDERED: DESFLURANE 61 TO 120 MINUTES IH ONE (12:09)
--- NOTE | 2018-12-03 12:18 | PDOC ---
BRIEF OPERATIVE NOTE Date: Dec 03, 2018 Pre-Op Diagnosis 1. AUB 2. Menorrhagia 3. Fibroids 4. MERNA Cyst Post-Op Diagnosis Same Procedure Performed TLH & BSO Surgeon Dr. Kowalski Tab Cutter Ana Anesthesia Type: General Blood Loss 50 ml Specimens Obtained cervix, uterus, anderson. fallopian tubes and ovaries Findings enlarged, fibroids uterus, MERNA cyst; nml fallopian tubes anderson., nml ROV Complications none Operative Note see dictation ANTHONY KOWALSKI Jr, MD Dec 03, 2018 12:18
[2018-12-03] MEDS ORDERED: CALCIUM CARBONATE 500 MG TAB.CHEW PO PRN (12:30)
[2018-12-03] MEDS ORDERED: 0.9 % SODIUM CHLORIDE 10 ML DISP.SYRIN. IV PRN (12:30)
[2018-12-03] MEDS ORDERED: diphenhydrAMINE HCL 25 MG CAPSULE PO PRN (12:30)
[2018-12-03] MEDS ORDERED: DEXTROSE 50% 25 GM / 50ML DISP.SYRIN. IV PRN (12:30)
[2018-12-03] MEDS ORDERED: diphenhydrAMINE 50 MG/ML VIAL IV PRN (12:30)
[2018-12-03] MEDS ORDERED: PROCHLORPERAZINE 10 MG/2 ML VIAL. IV PRN (12:30)
[2018-12-03] MEDS ORDERED: ONDANSETRON PF 4 MG/2 ML VIAL. IV PRN (12:30)
[2018-12-03] MEDS ORDERED: SIMETHICONE 80 MG TAB.CHEW PO PRN (12:30)
[2018-12-03] MEDS ORDERED: ZOLPIDEM 5 MG TABLET. PO PRN (12:30)
--- NOTE | 2018-12-03 12:57 | OP ---
DATE OF SURGERY: PREOPERATIVE DIAGNOSES: 1. Abnormal uterine bleeding. 2. Menorrhagia. 3. Fibroids. 4. Left ovarian cyst. POSTOPERATIVE DIAGNOSES: 1. Abnormal uterine bleeding. 2. Menorrhagia. 3. Fibroids. 4. Left ovarian cyst. PROCEDURE: TLH-BSO via da Cyrus robot. SURGEON: Anthony Kowalski MD PRIMER POWDER BLENDER WET: Ana. ANESTHESIA: GETA. ESTIMATED BLOOD LOSS: 50 mL. COMPLICATIONS: None. FINDINGS: Enlarged fibroid uterus, left ovarian cyst, normal fallopian tubes bilaterally, normal right ovary. SUMMARY: A 48-year-old with abnormal uterine bleeding, fibroids, menorrhagia and left ovarian cyst requiring total laparoscopic hysterectomy and bilateral salpingo-oophorectomy. She was counseled on risks, benefits and expectations of the surgery and desired to proceed. DESCRIPTION OF PROCEDURE: The patient was taken to surgery suite and placed in dorsal lithotomy position. She was prepped with Betadine solution for vaginal prep and ChloraPrep for abdominal prep. After adequate anesthesia, weighted speculum and curved Ulm placed vaginally. Anterior lip of the cervix grasped with a single tooth tenaculum. The Telma uterine manipulator was then placed. Single tooth tenaculum and weighted speculum and curved Ulm were then removed. Attention was now placed on abdomen. Small transverse skin incision was made just below the umbilicus with a scalpel. The Veress needle was then placed through the infraumbilical incision site. The abdomen was allowed to insufflate up to 1-1/2 liters CO2 gas. The Veress needle was then removed. An 8 mm camera port was then placed. The camera was positioned. Uterus was enlarged. There were multiple cysts on the left ovary and fallopian tubes appeared normal bilaterally. Right ovary appeared normal. Incision site was made in the left and right lower quadrant, in which 8 mm trocars were placed. An accessory port was placed in the left upper quadrant, which a scalpel was used to make an incision and a 5 mm port was placed. The robot was then docked in normal fashion. I then proceeded to the console. With the aid of the vessel sealer, the right round ligament was chronic and dissected. The right infundibulopelvic ligament was coagulated and dissected. The right broad ligament was coagulated and dissected down to and including the right uterine artery. Bladder flap was partially created with the vessel sealer. Same process took place with the left adnexa. The uterus then circumscribed at the level of the cervical ring with the spatula, the cervix, uterus, bilateral fallopian tubes, bilateral ovaries were then removed in their entirety. The vaginal cuff was reapproximated using V-Loc suture in a running fashion. Suction irrigation was utilized to verify good hemostasis. Small amount of normal saline was left in posterior cul-de-sac. The trocars were then removed under direct visualization, and the abdomen was allowed to deflate as much as possible along with mechanical manipulation. The four skin incisions were reapproximated using 4-0 Vicryl suture in subcuticular manner. A 0.5% lidocaine with epinephrine was injected at each incision site. The patient tolerated the procedure well. A Premarin vaginal packing was placed. She was taken to recovery room in stable condition. Sponge and needle count correct x 3. ANTHONY KOWALSKI MD DR: ROSAURA/kim JOB#: [id number] / [id number]
[2018-12-03 14:05] VITALS: BP_SYST 60
[2018-12-03] MEDS: GABAPENTIN 300 MG CAPSULE. PO SCH ×2 (14:30→21:19)
[2018-12-03 14:34] VITALS: BP_SYST 129; BP_DIAS 63; BP_DIAS 72
[2018-12-03 16:53] VITALS: BP 124/71
[2018-12-03 21:20] VITALS: BP 90/49
[2018-12-03] MEDS: oxyCODONE/APAP 5/325 1 TAB TABLET PO PRN (21:23)
[2018-12-03] MEDS: KETOROLAC 30 MG/ML VIAL. IV PRN (21:24)
[2018-12-04 01:42] VITALS: BP 85/46
[2018-12-04 04:42] LABS: BASO % 0 % (0-3); EOS % 0 % (0-3); HEMATOCRIT 32.1 % (36.0-47.0); HEMOGLOBIN 10.6 g/dL (12.0-15.5); LYMPH # 1.7 x10^3/uL (1.0-4.8); LYMPH % 17 % (24-48); MEAN CORPUSCULAR HEMOGLOBIN 29 pg (25-35); MEAN CORPUSCULAR HGB CONC 33 g/dL (31-37); MEAN CORPUSCULAR VOLUME 86 fL (79-100); MONO # 0.8 x10^3/uL (0.0-1.1); MONO % 8 % (0-9); NEUT # 7.6 x10^3uL (1.8-7.7); NEUT % 75 % (31-73); PLATELET COUNT 218 x10^3/uL (140-400); RED BLOOD COUNT 3.72 x10^6/uL (3.50-5.40); RED CELL DISTRIBUTION WIDTH 14.2 % (11.5-14.5)
[2018-12-04 04:46] VITALS: BP 91/46
[2018-12-04] MEDS: KETOROLAC 30 MG/ML VIAL. IV PRN (05:26)
[2018-12-04] MEDS: oxyCODONE/APAP 5/325 1 TAB TABLET PO PRN (05:26)
[2018-12-04] MEDS: GABAPENTIN 300 MG CAPSULE. PO SCH (05:27)
[2018-12-04 07:15] VITALS: BP 118/68
--- NOTE | 2018-12-04 07:19 | PDOC ---
SURGICAL PROGRESS NOTE Subjective Pt. feeling well. Pain controlled. Vital Signs Vital Signs Date Time Temp Pulse Resp B/P (MAP) Pulse Ox O2 Delivery O2 Flow Rate FiO2 12/04/18 04:46 98.2 68 20 91/46 (61) Room Air 98.2 12/04/18 01:42 95 12/03/18 14:34 10.0 I&O Intake and Output 12/04/18 07:01 Intake Total 1580 ml Output Total 2100 ml Balance -520 ml Intake Oral 1580 ml Output Urine Total 2050 ml Estimated Blood Loss 50 ml PATIENT HAS A GIBBONS: No General: Alert, Oriented X3, Cooperative HEENT: Atraumatic Lungs: Clear to auscultation Heart: Regular rate Abdomen: Normal bowel sounds, Soft, No tenderness Extremities: No edema Psych/Mental Status: Mental status NL Labs Laboratory Tests Test 12/03/18 08:20 12/03/18 08:50 12/04/18 04:25 Urine Test Negative (NEG) White Blood Count 6.0 x10^3/uL (4.0-11.0) 10.0 x10^3/uL (4.0-11.0) Red Blood Count 4.50 x10^6/uL (3.50-5.40) 3.72 x10^6/uL (3.50-5.40) Hemoglobin 12.7 g/dL (12.0-15.5) 10.6 g/dL (12.0-15.5) Hematocrit 38.6 % (36.0-47.0) 32.1 % (36.0-47.0) Mean Corpuscular Volume 86 fL (79-100) 86 fL (79-100) Mean Corpuscular Hemoglobin 28 pg (25-35) 29 pg (25-35) Mean Corpuscular Hemoglobin Concent 33 g/dL (31-37) 33 g/dL (31-37) Red Cell Distribution Width 14.6 % (11.5-14.5) 14.2 % (11.5-14.5) Platelet Count 246 x10^3/uL (140-400) 218 x10^3/uL (140-400) Neutrophils (%) (Auto) 64 % (31-73) 75 % (31-73) Lymphocytes (%) (Auto) 25 % (24-48) 17 % (24-48) Monocytes (%) (Auto) 9 % (0-9) 8 % (0-9) Eosinophils (%) (Auto) 2 % (0-3) 0 % (0-3) Basophils (%) (Auto) 1 % (0-3) 0 % (0-3) Neutrophils # (Auto) 3.8 x10^3uL (1.8-7.7) 7.6 x10^3uL (1.8-7.7) Lymphocytes # (Auto) 1.5 x10^3/uL (1.0-4.8) 1.7 x10^3/uL (1.0-4.8) Monocytes # (Auto) 0.5 x10^3/uL (0.0-1.1) 0.8 x10^3/uL (0.0-1.1) Eosinophils # (Auto) 0.1 x10^3/uL (0.0-0.7) 0.0 x10^3/uL (0.0-0.7) Basophils # (Auto) 0.0 x10^3/uL (0.0-0.2) 0.0 x10^3/uL (0.0-0.2) Laboratory Tests Test 12/03/18 08:20 12/03/18 08:50 12/04/18 04:25 Urine Test Negative (NEG) White Blood Count 6.0 x10^3/uL (4.0-11.0) 10.0 x10^3/uL (4.0-11.0) Red Blood Count 4.50 x10^6/uL (3.50-5.40) 3.72 x10^6/uL (3.50-5.40) Hemoglobin 12.7 g/dL (12.0-15.5) 10.6 g/dL (12.0-15.5) Hematocrit 38.6 % (36.0-47.0) 32.1 % (36.0-47.0) Mean Corpuscular Volume 86 fL (79-100) 86 fL (79-100) Mean Corpuscular Hemoglobin 28 pg (25-35) 29 pg (25-35) Mean Corpuscular Hemoglobin Concent 33 g/dL (31-37) 33 g/dL (31-37) Red Cell Distribution Width 14.6 % (11.5-14.5) 14.2 % (11.5-14.5) Platelet Count 246 x10^3/uL (140-400) 218 x10^3/uL (140-400) Neutrophils (%) (Auto) 64 % (31-73) 75 % (31-73) Lymphocytes (%) (Auto) 25 % (24-48) 17 % (24-48) Monocytes (%) (Auto) 9 % (0-9) 8 % (0-9) Eosinophils (%) (Auto) 2 % (0-3) 0 % (0-3) Basophils (%) (Auto) 1 % (0-3) 0 % (0-3) Neutrophils # (Auto) 3.8 x10^3uL (1.8-7.7) 7.6 x10^3uL (1.8-7.7) Lymphocytes # (Auto) 1.5 x10^3/uL (1.0-4.8) 1.7 x10^3/uL (1.0-4.8) Monocytes # (Auto) 0.5 x10^3/uL (0.0-1.1) 0.8 x10^3/uL (0.0-1.1) Eosinophils # (Auto) 0.1 x10^3/uL (0.0-0.7) 0.0 x10^3/uL (0.0-0.7) Basophils # (Auto) 0.0 x10^3/uL (0.0-0.2) 0.0 x10^3/uL (0.0-0.2) Assessment/Plan A: POD#1 s/p TLH & BSO P: D/c home. ANTHONY LOVE Jr, MD Dec 04, 2018 07:19
--- NOTE | 2018-12-04 07:20 | DISCH ---
DISCHARGE INSTRUCTIONS Condition on Discharge Condition on Discharge: Stable Activity After Discharge Activity Instructions for Disc: Activity as tolerated Lifting Instructions after Dis: No heavy lifting Driving Instructions after Dis: No driving for 2 weeks Diet after Discharge Diet after Discharge: Cardiac, Regular Contacting the DRRadha after DC Call your doctor for: Concerns you may have Follow-Up Follow up with: Dr. Woodard in 2 weeks. ANTHONY WOODARD Jr, MD Dec 04, 2018 07:20
[2018-12-04] MEDS ORDERED: OXYC1TAB15 PO (07:22)
[2018-12-04] MEDS ORDERED: IBUP-1060 PO (07:22)
[2018-12-04] MEDS ORDERED: DOCU-109 PO (07:22)
[2018-12-04 11:42] VITALS: BP 105/61
--- NOTE | 2018-12-04 11:56 | NUR ---
Discharge Discharge instructions given to patient and at this time, no questions or concerns noted. To follow up in 2 weeks. Patient ambulated off unit with all her belongings.
--- NOTE | 2018-12-07 16:09 | PATHOLOGY ---
[facility] Accession Number: [id number] . 01 Material submitted: . CERVIX, UTERUS, OVARIES AND TUBES . 01 Clinical history: . Abnormal uterine bleeding . 02 Diagnosis: Uterus and bilateral fallopian tubes and ovaries, hysterectomy with bilateral salpingo-oophorectomy: - Adenomyosis, uterine corpus, subbasal, with myometrial hypertrophy (uterine weight 197 grams). - Mild chronic cervicitis with focal squamous metaplasia. - Nabothian cysts, uterine cervix, several. - Inactive/weakly proliferative endometrium. 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 - Small cystic follicle of left ovary. - Small simple serous cysts of bilateral ovaries. [facility]/12/07/2018 . 02 Comment: There is no atypia or evidence of malignancy. ([facility]:spring 12/04/2018) . 02 Electronically signed: . Ramón Bailey MD, Pathologist NPI- [id number] . 01 Gross description: . The specimen is received in formalin, labeled "Suy[place] Min, cervix, uterus, ovaries and tubes". Received is a 197 g, 13.4 x 7.7 x 5.6 cm uterus with attached cervix and attached adnexa, weighing 7 and 8 g, left and right, respectively. The uterine serosa is pink-shepard to light shepard in appearance with a slight amount of overlying adhesions. The slit-like 0.5 cm cervical os is surrounded by pale-shepard to pink-shepard ectocervical mucosa. The uterus is oriented using the peritoneal reflection and the anterior paracervical margin is inked black. The uterus is opened laterally to reveal a pale shepard, corrugated endocervical canal measuring 3.6 cm in length. The endometrial cavity is triangular measuring 4.8 cm in length by 2.0 cm in width. The endometrium is pink-shepard, glistening in appearance and measures 0.1 cm in thickness. Serial sectioning reveals a shepard-pink, trabeculated myometrium measuring up to 2.7 cm in thickness with no grossly distinct nodules or lesions. . The left adnexa consists of a fimbriated fallopian tube measuring 2.1 cm in length by 0.7 cm in diameter attached to a 2.8 x 1.8 x 1.6 cm ovary. Fallopian tube displays several attached paratubal cysts measuring 0.1 cm filled with clear fluid. Sectioning reveals a patent lumen. The ovarian surface displays several cystic structures ranging in size from 0.1 to 0.4 cm filled with clear fluid. Sectioning through the ovary reveal several cystic structures ranging in size from 0.2 to 0.6 cm filled with clear fluid. The remaining cut surfaces display pale shepard, normal ovarian stroma. . The right adnexa consists of a fimbriated fallopian tube measuring 1.3 cm in length by 0.6 cm in diameter attached to a 3.4 x 2.2 x 1.2 cm ovary. The fallopian tube displays several paratubal cysts ranging 0.2 cm filled with clear fluid. Sectioning reveals a patent lumen. The ovarian surface displays multiple attached cystic structures ranging in size from 0.2 to 0.5 cm filled with clear fluid. Sectioning through the ovary reveals multiple cystic structures ranging in size from 0.3 to 0.5 cm filled with clear fluid. The remaining cut surfaces display pale shepard, normal ovarian stroma. The specimen is submitted representatively as follows: . A1 12:00 cervix A2 6:00 cervix A3 serosal adhesions A4 anterior endomyometrium A5 posterior endomyometrium A6 left adnexa A7 right adnexa. ([facility]AA; 12/04/2018) QAC/QAC . 02 Pathologist provided ICD-10: N80.0, N72, N94.89, N83.201, N83.202, N88.8 . 02 CPT . 462112 Specimen Comment: A courtesy copy of this report has been sent to Specimen Comment: [phone], . Specimen Comment: Report sent to / DR AGUILAR Performed at: [address] [place] [address] [address], [place], [place] [id number] MD Tomasz Murphy MD Phone: [phone] Performed at: [address] [id number] MD Ramón Bailey MD Phone: [phone]
== END 2018-12-04 11:59 | disposition home or self-care (01) ==
LOC: SURG 08:16 → 3 NORTH 13:18
PROVIDERS: ADMIT Obstetrics & Gynecology; ATTEND Obstetrics & Gynecology
DX: N92.0 Excessive and frequent menstruation with regular cycle (principal); D25.9 Leiomyoma of uterus, unspecified; N83.202 Unspecified ovarian cyst, left side
CPT/HCPCS: 36415; 58571; 81025; 85025; 86850; 86900; 86901; 90471; 90756; 96374; 96376; A7015; G0378; G0379; J0696; J1100; J1885; J2001; J2250; J2370; J2405; J2704; J3010; J3490; J7030; J7120; Q0163; S2900; Q2035